=== PATIENT | male | born 1985 | race Two or more races ===

== ENCOUNTER 2017-12-22 08:32 | Emergency (ER) | payer MEDICAID ==
[~2017-12-22] VITALS: Ht 162.6 cm; Wt 90.0 kg
[2017-12-22 08:42] VITALS: BP 131/89
== END 2017-12-22 13:07 | disposition home or self-care (01) ==
LOC: ER 08:55
DX: J06.9 Acute upper respiratory infection, unspecified (principal); R07.0 Pain in throat
CPT/HCPCS: 71045; 87070; 87430; 99285